=== PATIENT | male | born 1965 | race Caucasian/White ===

== ENCOUNTER 2018-08-29 15:20 | Inpatient (IN) | payer BC ==
[~2018-08-29] VITALS: Ht 172.7 cm; Wt 94.8 kg
[~2018-08-29 15:20] MED LIST: CETIRIZINE; LEVAQUIN 250MG250 MG PO; NORCO 325 MG-7.1 TAB PO; TYLENOL 325MG325 MG PO
[2018-08-29 16:02] LABS: BASO # 0.1 (0.0-0.2); BASO % 0.2 % (0.0-2.0); GRAN # 17.8 (1.4-6.5); GRAN % 87.6 % (42.2-75.2); HEMATOCRIT 44.1 % (42.0-52.0); HEMOGLOBIN 15.4 g/dl (13.5-18.0); MEAN CELL VOLUME 81 fl (80.0-100.0); MEAN CORPUSCULAR HEMOGLOBIN 28 pg (27.0-31.0); MEAN CORPUSCULAR HGB CONC 35 g/dl (33.0-37.0); MEAN PLATELET VOLUME 8.7 fl (7.4-10.4); MONO # 1.4 (0.1-0.6); MONO % 6.6 % (1.7-9.3); PLATELET COUNT 323 K/mm3 (130-400); RED BLOOD COUNT 5.45 M/mm3 (4.20-5.60); REDCELL DISTRIBUTION WIDTH-CV 12.1 % (11.5-14.5)
[2018-08-29 16:28] LABS: ALBUMIN 4.4 gm/dL (3.5-5.0); C-REACTIVE PROTEIN 2.9 mg/dL (0.0-0.9); CALCIUM 8.9 mg/dL (8.4-10.2); CREATININE, serum 0.96 mg/dL (0.66-1.25); POTASSIUM 3.9 mmol/L (3.4-5.0); TOTAL PROTEIN 7.8 gm/dL (6.4-8.2)
[2018-08-29] MEDS ORDERED: PERCOCET 325 MG1 TA2 PO (19:18)
[2018-08-29 19:24] VITALS: BP 138/87; PULSE 101; TEMP 99.3
[2018-08-29 22:35] VITALS: BP 143/81; PULSE 107; TEMP 99.5
[2018-08-30] VITALS (21 sets, daily range): BP systolic 111–155; BP diastolic 70–99; PULSE 61–105; TEMP 97.9–100.4; O2SAT 95–96
[2018-08-30 06:40] LABS: HEMOGLOBIN 14.9 g/dl (13.5-18.0); MEAN CELL VOLUME 82 fl (80.0-100.0); MEAN CORPUSCULAR HEMOGLOBIN 28 pg (27.0-31.0); MEAN CORPUSCULAR HGB CONC 35 g/dl (33.0-37.0); MEAN PLATELET VOLUME 8.7 fl (7.4-10.4); PLATELET COUNT 305 K/mm3 (130-400); RED BLOOD COUNT 5.24 M/mm3 (4.20-5.60); REDCELL DISTRIBUTION WIDTH-CV 12.6 % (11.5-14.5)
[2018-08-30 06:48] LABS: ALBUMIN 4.1 gm/dL (3.5-5.0); BILIRUBIN,TOTAL 1.7 mg/dL (0.0-1.0); CALCIUM 8.9 mg/dL (8.4-10.2); CREATININE, serum 0.97 mg/dL (0.66-1.25); POTASSIUM 3.8 mmol/L (3.4-5.0); TOTAL PROTEIN 7.6 gm/dL (6.4-8.2)
[2018-08-30 07:18] LABS: BAND 15 % (0-10); LYMPHOCYTE 6 % (20.0-51.0); NEUTROPHILS 71 % (42.0-75.2); PLATELET ESTIMATE NORMAL (NORMAL)
[2018-08-30] MEDS ORDERED: MOTRIN 600600 MG/TAB PO (16:47)
[2018-08-30] MEDS ORDERED: PERCOCET 325 MG1 TA2 PO (16:47)
[2018-08-30] MEDS ORDERED: COLACE 100100 MG/CAP PO (16:48)
[2018-08-31] VITALS (41 sets, daily range): BP systolic 119–130; BP diastolic 70–73; PULSE 59–73; TEMP 97.5–98.2; O2SAT 90–98
[2018-08-31 07:24] LABS: BASO % 0.1 % (0.0-2.0); GRAN # 18.2 (1.4-6.5); GRAN % 88.8 % (42.2-75.2); HEMATOCRIT 37.5 % (42.0-52.0); LYMPH # 1.1 (1.2-3.4); LYMPH % 5.4 % (20.0-51.0); MEAN CELL VOLUME 85 fl (80.0-100.0); MEAN CORPUSCULAR HEMOGLOBIN 28 pg (27.0-31.0); MEAN CORPUSCULAR HGB CONC 33 g/dl (33.0-37.0); MONO # 1.1 (0.1-0.6); MONO % 5.2 % (1.7-9.3); PLATELET COUNT 251 K/mm3 (130-400); REDCELL DISTRIBUTION WIDTH-CV 12.5 % (11.5-14.5)
[2018-08-31 07:37] LABS: CALCIUM 8.6 mg/dL (8.4-10.2); CREATININE, serum 0.82 mg/dL (0.66-1.25); HEMOGLOBIN 12.4 g/dl (13.5-18.0); POTASSIUM 4.1 mmol/L (3.4-5.0)
[2018-09-01 03:33] VITALS: BP 122/72; PULSE 56; TEMP 97.8
[2018-09-01 08:03] VITALS: BP 125/79; PULSE 62; TEMP 97.5
[2018-09-01 09:52] LABS: BASO % 0.3 % (0.0-2.0); EOS # 0.3 (0.0-0.7); EOS % 1.7 % (0-4.0); GRAN # 11.6 (1.4-6.5); GRAN % 75.6 % (42.2-75.2); HEMATOCRIT 40.3 % (42.0-52.0); HEMOGLOBIN 13.2 g/dl (13.5-18.0); LYMPH # 2.4 (1.2-3.4); LYMPH % 15.8 % (20.0-51.0); MEAN CELL VOLUME 86 fl (80.0-100.0); MEAN CORPUSCULAR HEMOGLOBIN 28 pg (27.0-31.0); MEAN CORPUSCULAR HGB CONC 33 g/dl (33.0-37.0); MEAN PLATELET VOLUME 9.1 fl (7.4-10.4); MONO # 0.8 (0.1-0.6); MONO % 5.4 % (1.7-9.3); PLATELET COUNT 288 K/mm3 (130-400); RED BLOOD COUNT 4.67 M/mm3 (4.20-5.60); REDCELL DISTRIBUTION WIDTH-CV 12.8 % (11.5-14.5)
[2018-09-01 10:06] LABS: CALCIUM 8.7 mg/dL (8.4-10.2); CREATININE, serum 0.97 mg/dL (0.66-1.25)
[2018-09-01 12:20] VITALS: BP 125/77; PULSE 70; TEMP 98.1
== END 2018-09-01 15:18 | disposition home or self-care (01) | DRG 418 ==
LOC: COL.ER 15:20 → MEDICAL 17:41 → SURG 17:41 → MEDICAL 19:20 → ICU 08-30 17:55 → SURG 08-31 15:55
PROVIDERS: Emergency Medicine; Surgery
PROC: BF131ZZ Fluoroscopy of Gallbladder and Bile Ducts using Low Osmolar Contrast (ICD-10-PCS; 2018-08-30)
PROC: 0FT44ZZ Resection of Gallbladder, Percutaneous Endoscopic Approach (ICD-10-PCS; principal; 2018-08-30 12:00)
DX: K80.12 Calculus of gallbladder with acute and chronic cholecystitis without obstruction (principal); E87.2 Acidosis; K82.A1 Gangrene of gallbladder in cholecystitis; Z23 Encounter for immunization
CPT/HCPCS: A9284; A9537; J1100; J1650; J1885; J2270; J2405; J2543; J2704; J3010; J7030; J7120; Q9967

== ENCOUNTER → 2018-10-03 | Outpatient (CLI) | payer BC ==
[~2018-10-03] MED LIST changes: +COLACE 100100 MG/CAP PO; +MOTRIN 600600 MG/TAB PO; +PERCOCET 325 MG1 TA2 PO
== END ==
LOC: COL.PUL 07:47
DX: I51.7 Cardiomegaly (principal); R91.8 Other nonspecific abnormal finding of lung field

== ENCOUNTER → 2019-09-25 | Outpatient (CLI) | payer BC | LOC: COL.RAD 07:37 | DX: R91.1 Solitary pulmonary nodule (principal) ==

== ENCOUNTER → 2022-02-23 | Outpatient (CLI) | payer BC | LOC: COL.PUL 07:28 | DX: R06.02 Shortness of breath (principal) ==